=== PATIENT | male | born 2000 | race African-American/Black ===

== ENCOUNTER 2021-12-16 07:17 | Emergency (ER) | payer BC ==
[~2021-12-16] VITALS: Ht 182.9 cm; Wt 76.0 kg
[2021-12-16 07:21] VITALS: BP 126/70
[2021-12-16] MEDS ORDERED: ACETAMINOPHEN 325MG TABLET PO STA (07:26)
[2021-12-16 08:13] LABS: BASOPHILS % 0.3 % (0.0-2.0); EOSINOPHILS % 3.8 % (0.0-5.0); HEMATOCRIT. 33.5 % (42.0-52.0); HEMOGLOBIN. 10.6 g/dL (14.0-18.0); LYMPHOCYTES % 11.2 % (20.0-50.0); MEAN CORPUSCULAR HEMOGLOBIN 24.9 pg (28.0-32.0); MEAN CORPUSCULAR VOLUME 78.5 fL (80.0-94.0); MONOCYTES % 0.8 % (2.0-8.0); NEUTROPHILS % 83.9 % (40.0-76.0); RED BLOOD CELL COUNT 4.27 mill/uL (4.7-6.1)
[2021-12-16 08:26] LABS: CHLORIDE 107 mEq/L (98-107)
[2021-12-16 08:41] LABS: PLATELET 382 x1000/uL (130-400)
[2021-12-16 10:04] LABS: *AMPHETAMINES SCREEN URINE NEGATIVE (NEGATIVE); *BARBITURATES SCREEN URINE NEGATIVE (NEGATIVE); *BENZODIAZEPINES SCREEN URINE NEGATIVE (NEGATIVE); *COCAINE SCREEN URINE NEGATIVE (NEGATIVE); CANNABINOID URINE SCREEN NEGATIVE (NEGATIVE); METHADONE URINE SCREEN NEGATIVE (NEGATIVE); OPIATES URINE SCREEN NEGATIVE (NEGATIVE); PHENCYCLIDINE URINE SCREEN NEGATIVE (NEGATIVE)
[2021-12-16] MEDS ORDERED: TOPUD PO (10:12)
== END 2021-12-16 10:39 | disposition home or self-care (01) ==
LOC: ER 07:17
DX: R10.30 Lower abdominal pain, unspecified (principal); Z20.822 Contact with and (suspected) exposure to COVID-19
CPT/HCPCS: 36415; 71045; 80053; 80305; 85025; 87426; 99284